=== PATIENT | male | born 1935 | race Caucasian/White ===

== ENCOUNTER 2019-09-30 15:56 | Observation (INO) ==
[2019-09-30 16:49] LABS: Basophils % 0.4 % (0.0-0.8); Eosinophils # 0.2 10*3/uL (0.0-0.87); Eosinophils % 2.4 % (0.00-10.9); Hematocrit 39.2 VOL% (42.0-52.0); Hemoglobin 12.8 GM/DL (14.0-18.0); Immature Granulocytes % 0.5 %; Immature Granulocytes Absolute 0.04 #; Lymphocytes % 12.7 % (21.2-54.2); Mean Corpuscular HGB Conc 32.7 GM/DL (32-36); Mean Corpuscular Volume 85.4 FL (87-102); Mean Platelet Volume 11.3 FL (9.6-12.0); Monocytes % 8.4 % (1.7-12.7); Neutrophils % 75.6 % (38.7-73.9); Platelet Count 123 T/CUMM (130-400); Red Blood Count 4.59 MC/CUMM (3.8-5.5); Red Cell Distribution Width 13.6 % (9.3-17.3)
[2019-09-30 16:57] LABS: Apearance,Urine CLEAR (Clear); Bilirubin,Urine Negative (Negative); Blood, Urine Negative (Negative); Glucose,Urine (UA) Negative (Negative); Ketones,Urine 80 mg/dL (Negative); Mucus,Urine Occasional /LPF (Occasional); Nitrite,Urine Negative (Negative); Protein,Urine 30 MG/DL; RBC,Urine 2 /HPF (0-4); Urine Color Yellow (Yellow); WBC,Urine 1 /HPF (0-6)
[2019-09-30 17:02] LABS: INR 1.1; PT Patient Result 11.8 SECS (9.8-11.9); Partial Thromboplastin Time 26.9 SECS (23.9-33.8)
[2019-09-30 17:02] LABS: Barbiturates Screen,Urine Negative (Negative); Benzodiazepines Screen,Urine Negative (Negative); Cannabinoid Screen,Urine Negative (Negative); Opiate Screen,Urine Negative (Negative); Phencyclidine Screen,Urine Negative (Negative)
[2019-09-30 17:27] LABS: Alanine Aminotransferase 14 U/L (16-61); Albumin 3.4 G/DL (3.4-5.0); Alkaline Phosphatase 43 U/L (45-117); Aspartate Amino Transferase 97 U/L (0-37); Blood Urea Nitrogen 35 MG/DL (7-18); CKMB % 0.6 %; Calcium 8.8 MG/DL (8.5-10.1); Estimated Glom Filtration Rate 73 ML/MIN; Ferritin 185.8 ng/ml (26-388); Free T4 (Free Thyroxine) 0.97 NG/DL (0.76-1.46); Glucose 99 MG/DL (74-106); Osmolality,Calculated 277.1 MOS/KG (273-304); Thyroid Stimulating Hormone 0.184 uIU/ml (0.358-3.74); Total Protein 6.8 G/DL (6.4-8.3); Troponin I < 0.015 NG/ML (0.00-0.045)
[2019-09-30] MEDS ORDERED: SODIUM CHLORIDE 0.9% 1,000 ML IV STA (17:42)
[2019-09-30] MEDS ORDERED: ONDANSETRON 4 MG/2 ML VIAL IV PRN (17:57)
[2019-09-30] MEDS ORDERED: ACETAMINOPHEN 325 MG TABLET PO PRN (17:57)
[2019-09-30] MEDS ORDERED: GLUCAGON 1 MG VIAL IM PRN (17:57)
[2019-09-30] MEDS ORDERED: DEXTROSE 10% 250 ML BAG IV PRN (17:57)
[2019-09-30] MEDS ORDERED: SODIUM CHLORIDE 0.9% 1,000 ML IV SCH (18:00)
[2019-09-30] MEDS: PRAMIPEXOLE 1 MG TABLET PO SCH (22:29)
[2019-09-30] MEDS: MEMANTINE 5 MG TABLET PO SCH (22:29)
[2019-09-30] MEDS: CARBIDOPA/LEVODOPA 25-100 MG TABLET PO SCH (22:29)
[2019-09-30] MEDS: ENOXAPARIN 30 MG/0.3 ML SYRINGE SUBCUT SCH (22:29)
[2019-09-30] MEDS: OXYBUTYNIN XL 5 MG TABLET PO SCH (22:29)
[2019-09-30] MEDS: QUEtiapine 25 MG TABLET PO SCH (22:29)
[2019-10-01 06:13] LABS: Basophils % 0.6 % (0.0-0.8); Eosinophils # 0.3 10*3/uL (0.0-0.87); Eosinophils % 4.4 % (0.00-10.9); Hematocrit 35.6 VOL% (42.0-52.0); Hemoglobin 11.5 GM/DL (14.0-18.0); Immature Granulocytes % 0.5 %; Immature Granulocytes Absolute 0.03 #; Lymphocytes # 1.4 10*3/uL (1.4-4.0); Lymphocytes % 22.1 % (21.2-54.2); Mean Corpuscular HGB Conc 32.3 GM/DL (32-36); Mean Platelet Volume 11.1 FL (9.6-12.0); Monocytes % 10.5 % (1.7-12.7); Neutrophils % 61.9 % (38.7-73.9); Platelet Count 119 T/CUMM (130-400); Red Blood Count 4.09 MC/CUMM (3.8-5.5); Red Cell Distribution Width 13.6 % (9.3-17.3); White Blood Count 6.4 T/CUMM (4-12)
[2019-10-01 06:35] LABS: Calcium 8.3 MG/DL (8.5-10.1); Osmolality,Calculated 277.8 MOS/KG (273-304)
[2019-10-01] MEDS: PRAMIPEXOLE 1 MG TABLET PO SCH ×3 (09:19→21:25)
[2019-10-01] MEDS: CARBIDOPA/LEVODOPA 25-100 MG TABLET PO SCH ×3 (09:20→21:25)
[2019-10-01] MEDS: CLOPIDOGREL 75 MG TABLET PO SCH (09:20)
[2019-10-01] MEDS: lisinopriL 2.5 MG TABLET PO SCH (09:20)
[2019-10-01] MEDS: MEMANTINE 5 MG TABLET PO SCH ×2 (09:26→21:25)
[2019-10-01] MEDS: ASPIRIN EC 81 MG TABLET PO SCH (09:26)
[2019-10-01] MEDS ORDERED: TUBERCULIN SKIN TEST 0.1 ML SYRINGE INTRADERM ONE (15:02)
[2019-10-01] MEDS: OXYBUTYNIN XL 5 MG TABLET PO SCH (21:26)
[2019-10-01] MEDS: ENOXAPARIN 30 MG/0.3 ML SYRINGE SUBCUT SCH (21:27)
[2019-10-01] MEDS: QUEtiapine 25 MG TABLET PO SCH (21:29)
[2019-10-02 04:53] LABS: Basophils % 0.7 % (0.0-0.8); Eosinophils # 0.3 10*3/uL (0.0-0.87); Eosinophils % 4.5 % (0.00-10.9); Hematocrit 35.2 VOL% (42.0-52.0); Hemoglobin 11.3 GM/DL (14.0-18.0); Immature Granulocytes % 0.3 %; Immature Granulocytes Absolute 0.02 #; Lymphocytes # 1.6 10*3/uL (1.4-4.0); Lymphocytes % 27.1 % (21.2-54.2); Mean Corpuscular HGB Conc 32.1 GM/DL (32-36); Mean Corpuscular Volume 86.9 FL (87-102); Mean Platelet Volume 11.1 FL (9.6-12.0); Monocytes % 8.9 % (1.7-12.7); Neutrophils % 58.5 % (38.7-73.9); Platelet Count 127 T/CUMM (130-400); Red Blood Count 4.05 MC/CUMM (3.8-5.5); Red Cell Distribution Width 13.6 % (9.3-17.3); White Blood Count 5.8 T/CUMM (4-12)
[2019-10-02 05:19] LABS: Osmolality,Calculated 278.7 MOS/KG (273-304)
[2019-10-02] MEDS: PRAMIPEXOLE 1 MG TABLET PO SCH ×2 (08:19→14:48)
[2019-10-02] MEDS: ASPIRIN EC 81 MG TABLET PO SCH (08:20)
[2019-10-02] MEDS: CLOPIDOGREL 75 MG TABLET PO SCH (08:20)
[2019-10-02] MEDS: MEMANTINE 5 MG TABLET PO SCH (08:20)
[2019-10-02] MEDS: POTASSIUM CHLORIDE 20 MEQ TABLET PO PRN ×4 (08:20→14:48)
[2019-10-02] MEDS: CARBIDOPA/LEVODOPA 25-100 MG TABLET PO SCH ×3 (08:20→20:22)
[2019-10-02] MEDS: lisinopriL 2.5 MG TABLET PO SCH (08:20)
[2019-10-02] MEDS: DESITIN 4OZ/NYSTATIN 15 GRAM MIXTURE PASTE TOP SCH ×2 (17:35→20:23)
[2019-10-02] MEDS: QUEtiapine 25 MG TABLET PO SCH (20:21)
[2019-10-02] MEDS: ENOXAPARIN 30 MG/0.3 ML SYRINGE SUBCUT SCH (20:22)
[2019-10-02] MEDS: OXYBUTYNIN XL 5 MG TABLET PO SCH (20:22)
[2019-10-02] MEDS: MEMANTINE 10 MG TABLET PO SCH (20:22)
[2019-10-03] MEDS: CARBIDOPA/LEVODOPA 25-100 MG TABLET PO SCH (08:39)
[2019-10-03] MEDS: lisinopriL 2.5 MG TABLET PO SCH (08:39)
[2019-10-03] MEDS: ASPIRIN EC 81 MG TABLET PO SCH (08:40)
[2019-10-03] MEDS: QUEtiapine 25 MG TABLET PO SCH (08:40)
[2019-10-03] MEDS: CLOPIDOGREL 75 MG TABLET PO SCH (08:40)
[2019-10-03] MEDS: MEMANTINE 10 MG TABLET PO SCH (08:40)
[2019-10-03] MEDS: DESITIN 4OZ/NYSTATIN 15 GRAM MIXTURE PASTE TOP SCH (10:42)
[2019-10-03 12:04] VITALS: BP 157/72
== END 2019-10-03 14:06 | disposition swing bed (61) ==
LOC: EDUNIT# → EDBD → N.EDINP 15:56 → N.ED 15:56 → N.3E 19:36
PROVIDERS: ADMIT Internal Medicine; ATTEND Internal Medicine

== ENCOUNTER 2019-10-21 12:52 | Inpatient (IN) ==
[2019-10-21 14:42] LABS: Basophils % 0.2 % (0.0-0.8); Eosinophils % 0.2 % (0.00-10.9); Hematocrit 45.5 VOL% (42.0-52.0); Hemoglobin 14.7 GM/DL (14.0-18.0); Immature Granulocytes % 0.4 %; Immature Granulocytes Absolute 0.05 #; Lymphocytes # 0.6 10*3/uL (1.4-4.0); Lymphocytes % 4.5 % (21.2-54.2); Mean Corpuscular HGB Conc 32.3 GM/DL (32-36); Mean Corpuscular Volume 87.2 FL (87-102); Mean Platelet Volume 9.8 FL (9.6-12.0); Monocytes % 2.5 % (1.7-12.7); Neutrophils % 92.2 % (38.7-73.9); Platelet Count 183 T/CUMM (130-400); Red Blood Count 5.22 MC/CUMM (3.8-5.5); Red Cell Distribution Width 13.5 % (9.3-17.3); White Blood Count 12.9 T/CUMM (4-12)
[2019-10-21 15:00] LABS: Albumin 3.2 G/DL (3.4-5.0); Bilirubin,Total 0.6 MG/DL (0.2-1.0); Calcium 8.8 MG/DL (8.5-10.1); Ferritin 495.1 ng/ml (26-388); Osmolality,Calculated 272.2 MOS/KG (273-304); PT Patient Result 11.1 SECS (9.8-11.9); Total Protein 7.3 G/DL (6.4-8.3)
[2019-10-21] MEDS ORDERED: ONDANSETRON 4 MG/2 ML VIAL IV PRN (16:03)
[2019-10-21] MEDS ORDERED: DEXTROSE 10% 250 ML BAG IV PRN (16:03)
[2019-10-21] MEDS ORDERED: GLUCAGON 1 MG VIAL IM PRN (16:03)
[2019-10-21 16:06] LABS: Band Neutrophils 11 % (0-10); Lymphocytes 2 % (20-55); Segmented Neutrophils 84 % (50-85); Total Cells Counted 100
[2019-10-21 16:07] LABS: Platelet Estimate Normal
[2019-10-21] MEDS ORDERED: ACETAMINOPHEN 325 MG TABLET PO PRN (16:15)
[2019-10-21] MEDS: INSULIN LISPRO 100 UNIT/ML SUBCUT SCH (17:35)
[2019-10-21] MEDS ORDERED: ENOXAPARIN 30 MG/0.3 ML SYRINGE SUBCUT SCH (21:00)
[2019-10-21] MEDS: HYDROXYCHLOROQUINE 200 MG TABLET PO SCH (22:00)
[2019-10-21] MEDS: MEMANTINE 10 MG TABLET PO SCH (22:30)
[2019-10-21] MEDS: CARBIDOPA/LEVODOPA 25-100 MG TABLET PO SCH (22:30)
[2019-10-21] MEDS: OXYBUTYNIN XL 5 MG TABLET PO SCH (22:30)
[2019-10-22 07:15] LABS: Basophils % 0.1 % (0.0-0.8); Hematocrit 39.5 VOL% (42.0-52.0); Hemoglobin 12.9 GM/DL (14.0-18.0); Immature Granulocytes % 0.9 %; Immature Granulocytes Absolute 0.16 #; Lymphocytes # 0.9 10*3/uL (1.4-4.0); Lymphocytes % 5.1 % (21.2-54.2); Mean Corpuscular HGB Conc 32.7 GM/DL (32-36); Mean Corpuscular Volume 85.9 FL (87-102); Mean Platelet Volume 9.8 FL (9.6-12.0); Monocytes % 2.7 % (1.7-12.7); Neutrophils % 91.2 % (38.7-73.9); Platelet Count 177 T/CUMM (130-400); Red Cell Distribution Width 13.5 % (9.3-17.3); White Blood Count 17.8 T/CUMM (4-12)
[2019-10-22 07:38] LABS: Band Neutrophils 10 % (0-10); Hypochromasia Slight; Lymphocytes 5 % (20-55); Ovalocytes Slight; Platelet Estimate Adequate; Segmented Neutrophils 83 % (50-85); Total Cells Counted 100
[2019-10-22 07:39] LABS: Microcytosis Slight
[2019-10-22 08:54] LABS: Calcium 8.8 MG/DL (8.5-10.1)
[2019-10-22] MEDS: ASPIRIN EC 81 MG TABLET PO SCH (09:00)
[2019-10-22] MEDS: CHOLECALCIFEROL 1,000 UNIT TABLET PO SCH (09:00)
[2019-10-22] MEDS: PANTOPRAZOLE 40 MG TABLET PO SCH (09:00)
[2019-10-22] MEDS: CYANOCOBALAMIN 500 MCG TABLET PO SCH (09:00)
[2019-10-22] MEDS: MEMANTINE 10 MG TABLET PO SCH ×2 (09:00→20:30)
[2019-10-22] MEDS: ESCITALOPRAM 10 MG TABLET PO SCH (09:00)
[2019-10-22] MEDS ORDERED: AZITHROMYCIN 250 MG TABLET PO SCH (09:00)
[2019-10-22] MEDS: ZINC SULFATE 220 MG CAPSULE PO SCH (09:00)
[2019-10-22] MEDS: MULTIVITAMIN (CENTRUM) TABLET PO SCH (09:00)
[2019-10-22] MEDS: CLOPIDOGREL 75 MG TABLET PO SCH (09:00)
[2019-10-22] MEDS: HYDROXYCHLOROQUINE 200 MG TABLET PO SCH ×2 (09:00→20:30)
[2019-10-22] MEDS: lisinopriL 2.5 MG TABLET PO SCH (09:00)
[2019-10-22] MEDS: CARBIDOPA/LEVODOPA 25-100 MG TABLET PO SCH ×3 (09:00→20:30)
[2019-10-22] MEDS: INSULIN LISPRO 100 UNIT/ML SUBCUT SCH ×2 (09:46→17:08)
[2019-10-22] MEDS: PIPERACILLIN/TAZOBACTAM 3,375 MG in SODIUM CHLORIDE 0.9% 100 ML IV SCH ×2 (10:32→18:21)
[2019-10-22 17:10] LABS: Apearance,Urine CLOUDY (Clear); Bilirubin,Urine Negative (Negative); Blood, Urine Negative (Negative); Glucose,Urine (UA) Negative (Negative); Ketones,Urine 5 mg/dL (Negative); Mucus,Urine Occasional /LPF (Occasional); Nitrite,Urine Negative (Negative); Protein,Urine 100 MG/DL; RBC,Urine 2 /HPF (0-4); Squamous Epithelial Cell,Urine Occasional /HPF (0-10); Urine Color Amber (Yellow); Urine Specific Gravity 1.029 (1.001-1.035); Urine Urobilinogen < 2.0 EU/DL (0.2-1.0); WBC,Urine 3 /HPF (0-6)
[2019-10-22] MEDS: OXYBUTYNIN XL 5 MG TABLET PO SCH (20:30)
[2019-10-23] MEDS: PIPERACILLIN/TAZOBACTAM 3,375 MG in SODIUM CHLORIDE 0.9% 100 ML IV SCH ×3 (00:49→18:43)
[2019-10-23] MEDS: ENOXAPARIN 40 MG/0.4 ML SYRINGE SUBCUT SCH ×2 (00:50→21:55)
[2019-10-23] MEDS: INSULIN LISPRO 100 UNIT/ML SUBCUT SCH ×2 (08:57→18:29)
[2019-10-23] MEDS: PANTOPRAZOLE 40 MG TABLET PO SCH (09:01)
[2019-10-23] MEDS: CHOLECALCIFEROL 1,000 UNIT TABLET PO SCH (09:01)
[2019-10-23] MEDS: ESCITALOPRAM 10 MG TABLET PO SCH (09:01)
[2019-10-23] MEDS: CLOPIDOGREL 75 MG TABLET PO SCH (09:01)
[2019-10-23] MEDS: CARBIDOPA/LEVODOPA 25-100 MG TABLET PO SCH ×3 (09:01→21:56)
[2019-10-23] MEDS: MULTIVITAMIN (CENTRUM) TABLET PO SCH (09:01)
[2019-10-23] MEDS: lisinopriL 2.5 MG TABLET PO SCH (09:01)
[2019-10-23] MEDS: CYANOCOBALAMIN 500 MCG TABLET PO SCH (09:08)
[2019-10-23] MEDS: ASPIRIN EC 81 MG TABLET PO SCH (09:08)
[2019-10-23] MEDS: HYDROXYCHLOROQUINE 200 MG TABLET PO SCH ×2 (09:08→21:56)
[2019-10-23] MEDS: MEMANTINE 10 MG TABLET PO SCH ×2 (09:08→21:55)
[2019-10-23 10:51] LABS: Basophils % 0.3 % (0.0-0.8); Eosinophils # 0.1 10*3/uL (0.0-0.87); Eosinophils % 0.9 % (0.00-10.9); Hematocrit 38.4 VOL% (42.0-52.0); Hemoglobin 12.5 GM/DL (14.0-18.0); Immature Granulocytes Absolute 0.12 #; Lymphocytes # 0.9 10*3/uL (1.4-4.0); Lymphocytes % 7.4 % (21.2-54.2); Mean Corpuscular HGB Conc 32.6 GM/DL (32-36); Mean Corpuscular Volume 85.1 FL (87-102); Mean Platelet Volume 10.5 FL (9.6-12.0); Monocytes % 4.3 % (1.7-12.7); Neutrophils % 86.1 % (38.7-73.9); Platelet Count 189 T/CUMM (130-400); Red Blood Count 4.51 MC/CUMM (3.8-5.5); Red Cell Distribution Width 13.9 % (9.3-17.3); White Blood Count 12.5 T/CUMM (4-12)
[2019-10-23 10:58] LABS: Calcium 8.9 MG/DL (8.5-10.1); Osmolality,Calculated 284.7 MOS/KG (273-304)
[2019-10-23 11:54] LABS: Anisocytosis Slight; Band Neutrophils 19 % (0-10); Burr Cells 1+; Eosinophils 3 % (0-10); Lymphocytes 7 % (20-55); Platelet Estimate Normal; Poikilocytosis Slight; Segmented Neutrophils 68 % (50-85); Total Cells Counted 100
[2019-10-23] MEDS: OXYBUTYNIN XL 5 MG TABLET PO SCH (21:55)
[2019-10-24 03:41] LABS: Basophils % 0.3 % (0.0-0.8); Eosinophils # 0.1 10*3/uL (0.0-0.87); Eosinophils % 1.2 % (0.00-10.9); Hematocrit 36.7 VOL% (42.0-52.0); Hemoglobin 11.7 GM/DL (14.0-18.0); Immature Granulocytes % 1.2 %; Immature Granulocytes Absolute 0.13 #; Lymphocytes # 1.4 10*3/uL (1.4-4.0); Lymphocytes % 12.7 % (21.2-54.2); Mean Corpuscular HGB Conc 31.9 GM/DL (32-36); Mean Corpuscular Volume 88.6 FL (87-102); Mean Platelet Volume 10.1 FL (9.6-12.0); Monocytes % 5.7 % (1.7-12.7); Neutrophils % 78.9 % (38.7-73.9); Platelet Count 195 T/CUMM (130-400); Red Blood Count 4.14 MC/CUMM (3.8-5.5); Red Cell Distribution Width 13.8 % (9.3-17.3); White Blood Count 10.6 T/CUMM (4-12)
[2019-10-24 03:49] LABS: Calcium 8.9 MG/DL (8.5-10.1); Osmolality,Calculated 282.8 MOS/KG (273-304)
[2019-10-24] MEDS: PIPERACILLIN/TAZOBACTAM 3,375 MG in SODIUM CHLORIDE 0.9% 100 ML IV SCH ×2 (04:42→09:59)
[2019-10-24] MEDS: INSULIN LISPRO 100 UNIT/ML SUBCUT SCH ×2 (09:57→17:47)
[2019-10-24] MEDS: CLOPIDOGREL 75 MG TABLET PO SCH (09:58)
[2019-10-24] MEDS: ASPIRIN EC 81 MG TABLET PO SCH (09:58)
[2019-10-24] MEDS: MULTIVITAMIN (CENTRUM) TABLET PO SCH (09:58)
[2019-10-24] MEDS: CYANOCOBALAMIN 500 MCG TABLET PO SCH (09:58)
[2019-10-24] MEDS: CHOLECALCIFEROL 1,000 UNIT TABLET PO SCH (09:58)
[2019-10-24] MEDS: HYDROXYCHLOROQUINE 200 MG TABLET PO SCH ×2 (09:58→21:52)
[2019-10-24] MEDS: CARBIDOPA/LEVODOPA 25-100 MG TABLET PO SCH ×3 (09:58→21:52)
[2019-10-24] MEDS: lisinopriL 2.5 MG TABLET PO SCH (09:58)
[2019-10-24] MEDS: ESCITALOPRAM 10 MG TABLET PO SCH (09:58)
[2019-10-24] MEDS: ZINC SULFATE 220 MG CAPSULE PO SCH (09:58)
[2019-10-24] MEDS: PANTOPRAZOLE 40 MG TABLET PO SCH (09:58)
[2019-10-24] MEDS: MEMANTINE 10 MG TABLET PO SCH ×2 (09:58→21:52)
[2019-10-24] MEDS: OXYBUTYNIN XL 5 MG TABLET PO SCH (21:52)
[2019-10-24] MEDS: ENOXAPARIN 40 MG/0.4 ML SYRINGE SUBCUT SCH (21:52)
[2019-10-25 03:19] LABS: Basophils % 0.5 % (0.0-0.8); Eosinophils # 0.2 10*3/uL (0.0-0.87); Hematocrit 34.7 VOL% (42.0-52.0); Hemoglobin 11.2 GM/DL (14.0-18.0); Immature Granulocytes % 2.2 %; Immature Granulocytes Absolute 0.18 #; Lymphocytes # 1.1 10*3/uL (1.4-4.0); Lymphocytes % 13.1 % (21.2-54.2); Mean Corpuscular HGB Conc 32.3 GM/DL (32-36); Mean Corpuscular Volume 86.3 FL (87-102); Mean Platelet Volume 10.3 FL (9.6-12.0); Monocytes % 7.2 % (1.7-12.7); Platelet Count 198 T/CUMM (130-400); Red Blood Count 4.02 MC/CUMM (3.8-5.5); Red Cell Distribution Width 13.7 % (9.3-17.3); White Blood Count 8.2 T/CUMM (4-12)
[2019-10-25 03:36] LABS: Calcium 8.7 MG/DL (8.5-10.1); Osmolality,Calculated 283.5 MOS/KG (273-304)
[2019-10-25] MEDS: CHOLECALCIFEROL 1,000 UNIT TABLET PO SCH (08:20)
[2019-10-25] MEDS: ESCITALOPRAM 10 MG TABLET PO SCH (08:20)
[2019-10-25] MEDS: CYANOCOBALAMIN 500 MCG TABLET PO SCH (08:20)
[2019-10-25] MEDS: HYDROXYCHLOROQUINE 200 MG TABLET PO SCH ×2 (08:20→20:30)
[2019-10-25] MEDS: ASPIRIN EC 81 MG TABLET PO SCH (08:20)
[2019-10-25] MEDS: PANTOPRAZOLE 40 MG TABLET PO SCH (08:20)
[2019-10-25] MEDS: MEMANTINE 10 MG TABLET PO SCH ×2 (08:20→20:30)
[2019-10-25] MEDS: MULTIVITAMIN (CENTRUM) TABLET PO SCH (08:20)
[2019-10-25] MEDS: CARBIDOPA/LEVODOPA 25-100 MG TABLET PO SCH ×3 (08:20→20:30)
[2019-10-25] MEDS: CLOPIDOGREL 75 MG TABLET PO SCH (08:20)
[2019-10-25] MEDS: lisinopriL 2.5 MG TABLET PO SCH (08:20)
[2019-10-25] MEDS: INSULIN LISPRO 100 UNIT/ML SUBCUT SCH ×2 (10:23→18:51)
[2019-10-25] MEDS: OXYBUTYNIN XL 5 MG TABLET PO SCH (20:30)
[2019-10-25] MEDS: ENOXAPARIN 40 MG/0.4 ML SYRINGE SUBCUT SCH (20:30)
[2019-10-26] MEDS: INSULIN LISPRO 100 UNIT/ML SUBCUT SCH ×2 (07:50→17:54)
[2019-10-26] MEDS: MEMANTINE 10 MG TABLET PO SCH ×2 (12:44→20:30)
[2019-10-26] MEDS: ESCITALOPRAM 10 MG TABLET PO SCH (12:44)
[2019-10-26] MEDS: ASPIRIN EC 81 MG TABLET PO SCH (12:44)
[2019-10-26] MEDS: MULTIVITAMIN (CENTRUM) TABLET PO SCH (12:44)
[2019-10-26] MEDS: PANTOPRAZOLE 40 MG TABLET PO SCH (12:45)
[2019-10-26] MEDS: CYANOCOBALAMIN 500 MCG TABLET PO SCH (12:45)
[2019-10-26] MEDS: CHOLECALCIFEROL 1,000 UNIT TABLET PO SCH (12:45)
[2019-10-26] MEDS: CARBIDOPA/LEVODOPA 25-100 MG TABLET PO SCH ×3 (12:45→20:30)
[2019-10-26] MEDS: lisinopriL 2.5 MG TABLET PO SCH (12:45)
[2019-10-26] MEDS: CLOPIDOGREL 75 MG TABLET PO SCH (12:45)
[2019-10-26] MEDS: HYDROXYCHLOROQUINE 200 MG TABLET PO SCH (12:45)
[2019-10-26] MEDS: ZINC SULFATE 220 MG CAPSULE PO SCH (12:46)
[2019-10-26] MEDS: ENOXAPARIN 40 MG/0.4 ML SYRINGE SUBCUT SCH (20:30)
[2019-10-26] MEDS: OXYBUTYNIN XL 5 MG TABLET PO SCH (20:30)
[2019-10-27] MEDS: PANTOPRAZOLE 40 MG TABLET PO SCH (08:47)
[2019-10-27] MEDS: CLOPIDOGREL 75 MG TABLET PO SCH (08:47)
[2019-10-27] MEDS: lisinopriL 2.5 MG TABLET PO SCH (08:47)
[2019-10-27] MEDS: CYANOCOBALAMIN 500 MCG TABLET PO SCH (08:47)
[2019-10-27] MEDS: ASPIRIN EC 81 MG TABLET PO SCH (08:47)
[2019-10-27] MEDS: CARBIDOPA/LEVODOPA 25-100 MG TABLET PO SCH (08:47)
[2019-10-27] MEDS: ESCITALOPRAM 10 MG TABLET PO SCH (08:47)
[2019-10-27] MEDS: INSULIN LISPRO 100 UNIT/ML SUBCUT SCH (08:47)
[2019-10-27] MEDS: CHOLECALCIFEROL 1,000 UNIT TABLET PO SCH (08:47)
[2019-10-27] MEDS: MULTIVITAMIN (CENTRUM) TABLET PO SCH (08:47)
[2019-10-27] MEDS: MEMANTINE 10 MG TABLET PO SCH (08:47)
[2019-10-27 13:04] VITALS: BP 137/73
== END 2019-10-27 14:21 | DRG 179 ==
LOC: EDUNIT# → EDBD → N.ED 12:52 → N.EDINP 16:44 → SUATTDRO 16:44 → N.2W 17:05
PROVIDERS: ADMIT Internal Medicine; ATTEND Internal Medicine

== ENCOUNTER 2021-07-26 10:21 | Inpatient (IN) ==
[2021-07-26 11:27] LABS: Basophils # 0.1 10*3/uL (0.0-0.2); Basophils % 0.7 % (0.0-0.8); Eosinophils # 0.2 10*3/uL (0.0-0.87); Eosinophils % 2.5 % (0.00-10.9); Hematocrit 42.4 VOL% (42.0-52.0); Hemoglobin 13.9 GM/DL (14.0-18.0); Immature Granulocytes % 0.6 %; Immature Granulocytes Absolute 0.04 #; Lymphocytes # 2.5 10*3/uL (1.4-4.0); Mean Corpuscular HGB Conc 32.8 GM/DL (32-36); Mean Corpuscular Volume 86.7 FL (87-102); Mean Platelet Volume 11.1 FL (9.6-12.0); Monocytes % 6.7 % (1.7-12.7); Neutrophils % 53.5 % (38.7-73.9); Platelet Count 131 T/CUMM (130-400); Red Blood Count 4.89 MC/CUMM (3.8-5.5); Red Cell Distribution Width 13.6 % (9.3-17.3); White Blood Count 6.9 T/CUMM (4-12)
[2021-07-26 11:41] LABS: Alanine Aminotransferase < 9 U/L (16-61); Albumin 3.8 G/DL (3.4-5.0); Alkaline Phosphatase 55 U/L (45-117); Aspartate Amino Transferase 13 U/L (0-37); Blood Urea Nitrogen 19 MG/DL (7-18); Calcium 9.4 MG/DL (8.5-10.1); Carbon Dioxide 30 MMOL/L (21-32); Estimated Glom Filtration Rate 68 ML/MIN; Glucose 129 MG/DL (74-106); Osmolality,Calculated 282.4 MOS/KG (273-304); Potassium 3.6 MMOL/L (3.5-5.1); Sodium 140 MMOL/L (136-145); Total Protein 6.6 G/DL (6.4-8.2)
[2021-07-26] MEDS ORDERED: ONDANSETRON 4 MG/2 ML VIAL ONE (12:15)
[2021-07-26] MEDS ORDERED: ONDANSETRON 4 MG/2 ML VIAL IV STA (12:18)
[2021-07-26] MEDS ORDERED: BISACODYL 5 MG TABLET PO PRN (12:51)
[2021-07-26] MEDS ORDERED: ONDANSETRON 4 MG/2 ML VIAL IV PRN (12:51)
[2021-07-26] MEDS ORDERED: GLUCAGON 1 MG VIAL IM PRN (12:51)
[2021-07-26] MEDS: LACTATED RINGERS 1,000 ML IV SCH (12:55)
[2021-07-26] MEDS ORDERED: DEXTROSE 10% 25 GM/250 ML BAG IV PRN (12:57)
[2021-07-26 16:15] LABS: Bilirubin,Urine Negative (Negative); Blood, Urine Large mg/dL (Negative); Glucose,Urine (UA) Negative (Negative); Ketones,Urine 20 mg/dL (Negative); Mucus,Urine Moderate /LPF (Occasional); Nitrite,Urine Negative (Negative); Protein,Urine 30 MG/DL; RBC,Urine 1136 /HPF (0-4); Urine Appearance Slightly Hazy (Clear); Urine Color Yellow (Yellow); Urine Specific Gravity 1.019 (1.001-1.035)
[2021-07-26] MEDS: ENOXAPARIN 40 MG/0.4 ML SYRINGE SUBCUT SCH (16:17)
[2021-07-26] MEDS: CARBIDOPA/LEVODOPA 25-100 MG TABLET PO SCH ×2 (21:39→22:00)
[2021-07-26] MEDS: INSULIN LISPRO 100 UNIT/ML SUBCUT SCH (21:40)
[2021-07-26] MEDS: LATANOPROST 0.005% OPH SOLN 2.5 ML BOTTLE BOTH EYES SCH (22:00)
[2021-07-26] MEDS: OXYBUTYNIN XL 5 MG TABLET PO SCH (22:00)
[2021-07-26] MEDS: ROSUVASTATIN 10 MG TABLET PO SCH (22:00)
[2021-07-26] MEDS: MEMANTINE 10 MG TABLET PO SCH (22:00)
[2021-07-27] MEDS: LACTATED RINGERS 1,000 ML IV SCH ×3 (02:08→20:35)
[2021-07-27] MEDS: INSULIN LISPRO 100 UNIT/ML SUBCUT SCH ×5 (02:08→20:37)
[2021-07-27 06:45] LABS: Basophils % 0.3 % (0.0-0.8); Eosinophils # 0.1 10*3/uL (0.0-0.87); Hematocrit 42.4 VOL% (42.0-52.0); Hemoglobin 13.7 GM/DL (14.0-18.0); Immature Granulocytes % 0.3 %; Immature Granulocytes Absolute 0.03 #; Lymphocytes # 2.2 10*3/uL (1.4-4.0); Lymphocytes % 20.2 % (21.2-54.2); Mean Corpuscular HGB Conc 32.3 GM/DL (32-36); Mean Corpuscular Volume 87.4 FL (87-102); Mean Platelet Volume 12.7 FL (9.6-12.0); Monocytes % 6.8 % (1.7-12.7); Neutrophils % 71.4 % (38.7-73.9); Platelet Count 108 T/CUMM (130-400); Red Blood Count 4.85 MC/CUMM (3.8-5.5); Red Cell Distribution Width 13.5 % (9.3-17.3); White Blood Count 10.9 T/CUMM (4-12)
[2021-07-27 06:59] LABS: Calcium 8.5 MG/DL (8.5-10.1); Osmolality,Calculated 281.4 MOS/KG (273-304); Potassium 3.7 MMOL/L (3.5-5.1)
[2021-07-27] MEDS: cefTRIAXone 1,000 MG in SODIUM CHLORIDE 0.9% 100 ML IV SCH (08:47)
[2021-07-27] MEDS: ESCITALOPRAM 10 MG TABLET PO SCH (10:24)
[2021-07-27] MEDS: ASPIRIN EC 81 MG TABLET PO SCH (10:24)
[2021-07-27] MEDS: CLOPIDOGREL 75 MG TABLET PO SCH (10:26)
[2021-07-27] MEDS: CYANOCOBALAMIN 500 MCG TABLET PO SCH (10:26)
[2021-07-27] MEDS: MEMANTINE 10 MG TABLET PO SCH ×2 (10:26→20:38)
[2021-07-27] MEDS: CHOLECALCIFEROL 1,000 UNIT TABLET PO SCH (10:26)
[2021-07-27] MEDS: lisinopriL 2.5 MG TABLET PO SCH (10:27)
[2021-07-27] MEDS: PANTOPRAZOLE 40 MG TABLET PO SCH (10:27)
[2021-07-27] MEDS: CARBIDOPA/LEVODOPA 25-100 MG TABLET PO SCH ×3 (10:27→20:38)
[2021-07-27] MEDS: ENOXAPARIN 40 MG/0.4 ML SYRINGE SUBCUT SCH (15:40)
[2021-07-27] MEDS: LATANOPROST 0.005% OPH SOLN 2.5 ML BOTTLE BOTH EYES SCH (20:36)
[2021-07-27] MEDS: ROSUVASTATIN 10 MG TABLET PO SCH (20:37)
[2021-07-27] MEDS: OXYBUTYNIN XL 5 MG TABLET PO SCH (20:37)
[2021-07-28] MEDS: cefTRIAXone 1,000 MG in SODIUM CHLORIDE 0.9% 100 ML IV SCH (06:17)
[2021-07-28] MEDS: LACTATED RINGERS 1,000 ML IV SCH ×2 (07:00→14:31)
[2021-07-28 07:48] LABS: Basophils # 0.1 10*3/uL (0.0-0.2); Basophils % 0.6 % (0.0-0.8); Eosinophils # 0.1 10*3/uL (0.0-0.87); Eosinophils % 1.8 % (0.00-10.9); Hematocrit 35.9 VOL% (42.0-52.0); Hemoglobin 11.8 GM/DL (14.0-18.0); Immature Granulocytes % 0.1 %; Immature Granulocytes Absolute 0.01 #; Lymphocytes % 25.5 % (21.2-54.2); Mean Corpuscular HGB Conc 32.9 GM/DL (32-36); Mean Corpuscular Volume 87.3 FL (87-102); Mean Platelet Volume 11.3 FL (9.6-12.0); Monocytes % 8.1 % (1.7-12.7); Neutrophils % 63.9 % (38.7-73.9); Platelet Count 106 T/CUMM (130-400); Red Blood Count 4.11 MC/CUMM (3.8-5.5); Red Cell Distribution Width 13.2 % (9.3-17.3); White Blood Count 7.7 T/CUMM (4-12)
[2021-07-28 08:01] LABS: Calcium 8.4 MG/DL (8.5-10.1); Osmolality,Calculated 273.7 MOS/KG (273-304); Potassium 3.7 MMOL/L (3.5-5.1)
[2021-07-28 08:06] LABS: Burr Cells Few; Platelet Estimate Adequate
[2021-07-28] MEDS: ASPIRIN EC 81 MG TABLET PO SCH (08:49)
[2021-07-28] MEDS: INSULIN LISPRO 100 UNIT/ML SUBCUT SCH ×4 (08:49→21:28)
[2021-07-28] MEDS: ESCITALOPRAM 10 MG TABLET PO SCH (08:50)
[2021-07-28] MEDS: lisinopriL 2.5 MG TABLET PO SCH (08:51)
[2021-07-28] MEDS: CLOPIDOGREL 75 MG TABLET PO SCH (08:51)
[2021-07-28] MEDS: MEMANTINE 10 MG TABLET PO SCH ×2 (08:51→21:30)
[2021-07-28] MEDS: CYANOCOBALAMIN 500 MCG TABLET PO SCH (08:51)
[2021-07-28] MEDS: CARBIDOPA/LEVODOPA 25-100 MG TABLET PO SCH ×3 (08:51→21:30)
[2021-07-28] MEDS: PANTOPRAZOLE 40 MG TABLET PO SCH (08:51)
[2021-07-28] MEDS: CHOLECALCIFEROL 1,000 UNIT TABLET PO SCH (08:52)
[2021-07-28] MEDS: ENOXAPARIN 40 MG/0.4 ML SYRINGE SUBCUT SCH (14:30)
[2021-07-28] MEDS ORDERED: ATORVASTATIN 40 MG TABLET PO SCH (21:00)
[2021-07-28] MEDS: LATANOPROST 0.005% OPH SOLN 2.5 ML BOTTLE BOTH EYES SCH (21:27)
[2021-07-28] MEDS: OXYBUTYNIN XL 5 MG TABLET PO SCH (21:29)
[2021-07-28] MEDS: ATORVASTATIN 80 MG TABLET PO SCH (21:30)
[2021-07-29] MEDS: LACTATED RINGERS 1,000 ML IV SCH ×2 (00:18→17:53)
[2021-07-29] MEDS: cefTRIAXone 1,000 MG in SODIUM CHLORIDE 0.9% 100 ML IV SCH (06:08)
[2021-07-29 06:41] LABS: Risk Ratio 2.4; VLDL Cholesterol 19.8 MG/DL
[2021-07-29] MEDS: INSULIN LISPRO 100 UNIT/ML SUBCUT SCH ×4 (08:47→20:12)
[2021-07-29] MEDS: ASPIRIN EC 81 MG TABLET PO SCH (11:54)
[2021-07-29] MEDS: CYANOCOBALAMIN 500 MCG TABLET PO SCH (11:55)
[2021-07-29] MEDS: MEMANTINE 10 MG TABLET PO SCH ×2 (11:55→20:11)
[2021-07-29] MEDS: CARBIDOPA/LEVODOPA 25-100 MG TABLET PO SCH ×3 (11:55→20:11)
[2021-07-29] MEDS: PANTOPRAZOLE 40 MG TABLET PO SCH (11:55)
[2021-07-29] MEDS: ESCITALOPRAM 10 MG TABLET PO SCH (11:55)
[2021-07-29] MEDS: CLOPIDOGREL 75 MG TABLET PO SCH (11:55)
[2021-07-29] MEDS: CHOLECALCIFEROL 1,000 UNIT TABLET PO SCH (11:56)
[2021-07-29] MEDS ORDERED: hydrALAZINE 20 MG/1 ML VIAL IV PRN (12:09)
[2021-07-29] MEDS: ENOXAPARIN 40 MG/0.4 ML SYRINGE SUBCUT SCH (16:47)
[2021-07-29] MEDS: ATORVASTATIN 80 MG TABLET PO SCH (20:11)
[2021-07-29] MEDS: LATANOPROST 0.005% OPH SOLN 2.5 ML BOTTLE BOTH EYES SCH (20:11)
[2021-07-29] MEDS: OXYBUTYNIN XL 5 MG TABLET PO SCH (20:11)
[2021-07-30] MEDS: LACTATED RINGERS 1,000 ML IV SCH ×2 (03:15→14:40)
[2021-07-30 05:47] LABS: Basophils % 0.5 % (0.0-0.8); Eosinophils # 0.1 10*3/uL (0.0-0.87); Eosinophils % 1.6 % (0.00-10.9); Hematocrit 32.3 VOL% (42.0-52.0); Hemoglobin 10.7 GM/DL (14.0-18.0); Immature Granulocytes % 0.5 %; Immature Granulocytes Absolute 0.03 #; Lymphocytes # 1.3 10*3/uL (1.4-4.0); Lymphocytes % 20.4 % (21.2-54.2); Mean Corpuscular HGB Conc 33.1 GM/DL (32-36); Mean Corpuscular Volume 85.7 FL (87-102); Mean Platelet Volume 11.3 FL (9.6-12.0); Platelet Count 101 T/CUMM (130-400); Red Blood Count 3.77 MC/CUMM (3.8-5.5); White Blood Count 6.2 T/CUMM (4-12)
[2021-07-30 06:16] LABS: Calcium 8.5 MG/DL (8.5-10.1); Osmolality,Calculated 267.1 MOS/KG (273-304); Potassium 4.2 MMOL/L (3.5-5.1)
[2021-07-30] MEDS: cefTRIAXone 1,000 MG in SODIUM CHLORIDE 0.9% 100 ML IV SCH (06:35)
[2021-07-30] MEDS ORDERED: DEXTROSE 50% 25 GM/50 ML VIAL IV PRN (07:32)
[2021-07-30] MEDS: PANTOPRAZOLE 40 MG VIAL IV SCH ×2 (09:05→21:17)
[2021-07-30] MEDS: INSULIN LISPRO 100 UNIT/ML SUBCUT SCH ×4 (09:26→21:19)
[2021-07-30] MEDS: ESCITALOPRAM 10 MG TABLET PO SCH (10:36)
[2021-07-30] MEDS: CHOLECALCIFEROL 1,000 UNIT TABLET PO SCH (10:37)
[2021-07-30] MEDS: CARBIDOPA/LEVODOPA 25-100 MG TABLET PO SCH ×3 (10:37→21:15)
[2021-07-30] MEDS: CYANOCOBALAMIN 500 MCG TABLET PO SCH (10:37)
[2021-07-30] MEDS: lisinopriL 2.5 MG TABLET PO SCH (10:37)
[2021-07-30] MEDS: ASPIRIN EC 81 MG TABLET PO SCH (10:37)
[2021-07-30] MEDS: MEMANTINE 10 MG TABLET PO SCH ×2 (10:37→21:15)
[2021-07-30] MEDS: ENOXAPARIN 40 MG/0.4 ML SYRINGE SUBCUT SCH (15:18)
[2021-07-30] MEDS: AMPICILLIN INJ 1,000 MG in SODIUM CHLORIDE 0.9% 100 ML IV SCH ×2 (15:55→21:17)
[2021-07-30] MEDS: OXYBUTYNIN XL 5 MG TABLET PO SCH (21:15)
[2021-07-30] MEDS: ATORVASTATIN 80 MG TABLET PO SCH (21:15)
[2021-07-30] MEDS: LATANOPROST 0.005% OPH SOLN 2.5 ML BOTTLE BOTH EYES SCH (21:19)
[2021-07-31] MEDS: AMPICILLIN INJ 1,000 MG in SODIUM CHLORIDE 0.9% 100 ML IV SCH ×4 (03:55→21:45)
[2021-07-31] MEDS: INSULIN LISPRO 100 UNIT/ML SUBCUT SCH ×4 (07:15→21:19)
[2021-07-31 09:00] LABS: Calcium 8.5 MG/DL (8.5-10.1); Osmolality,Calculated 269.2 MOS/KG (273-304); Potassium 3.4 MMOL/L (3.5-5.1)
[2021-07-31] MEDS: MEMANTINE 10 MG TABLET PO SCH ×2 (09:57→21:08)
[2021-07-31] MEDS: ESCITALOPRAM 10 MG TABLET PO SCH (09:57)
[2021-07-31] MEDS: ASPIRIN EC 81 MG TABLET PO SCH (09:57)
[2021-07-31] MEDS: CHOLECALCIFEROL 1,000 UNIT TABLET PO SCH (09:57)
[2021-07-31] MEDS: lisinopriL 2.5 MG TABLET PO SCH (09:57)
[2021-07-31] MEDS: CARBIDOPA/LEVODOPA 25-100 MG TABLET PO SCH ×3 (09:57→21:08)
[2021-07-31] MEDS: CYANOCOBALAMIN 500 MCG TABLET PO SCH (09:58)
[2021-07-31] MEDS: PANTOPRAZOLE 40 MG VIAL IV SCH ×2 (10:29→21:18)
[2021-07-31] MEDS: POTASSIUM BICARB EFFERVESCENT 20 MEQ TAB.EFF NG SCH ×2 (11:02→21:07)
[2021-07-31] MEDS: LACTATED RINGERS 1,000 ML IV SCH (16:53)
[2021-07-31] MEDS: OXYBUTYNIN XL 5 MG TABLET PO SCH (21:07)
[2021-07-31] MEDS: ATORVASTATIN 80 MG TABLET PO SCH (21:08)
[2021-07-31] MEDS: LATANOPROST 0.005% OPH SOLN 2.5 ML BOTTLE BOTH EYES SCH (21:22)
[2021-08-01] MEDS: AMPICILLIN INJ 1,000 MG in SODIUM CHLORIDE 0.9% 100 ML IV SCH ×3 (03:43→18:21)
[2021-08-01 04:42] LABS: Basophils % 0.4 % (0.0-0.8); Eosinophils # 0.1 10*3/uL (0.0-0.87); Eosinophils % 0.5 % (0.00-10.9); Hematocrit 40.6 VOL% (42.0-52.0); Immature Granulocytes % 0.3 %; Immature Granulocytes Absolute 0.03 #; Lymphocytes # 1.4 10*3/uL (1.4-4.0); Lymphocytes % 14.9 % (21.2-54.2); Mean Corpuscular HGB Conc 33.5 GM/DL (32-36); Mean Corpuscular Volume 83.7 FL (87-102); Mean Platelet Volume 10.7 FL (9.6-12.0); Monocytes % 10.3 % (1.7-12.7); Neutrophils % 73.6 % (38.7-73.9); Red Cell Distribution Width 13.2 % (9.3-17.3)
[2021-08-01 04:45] LABS: Hemoglobin 13.6 GM/DL (14.0-18.0); Platelet Count 130 T/CUMM (130-400); Red Blood Count 4.85 MC/CUMM (3.8-5.5); White Blood Count 9.2 T/CUMM (4-12)
[2021-08-01 05:06] LABS: Calcium 8.4 MG/DL (8.5-10.1); Osmolality,Calculated 270.1 MOS/KG (273-304); Potassium 3.6 MMOL/L (3.5-5.1)
[2021-08-01] MEDS ORDERED: LIDOCAINE 2% 5 ML VIAL ONE (07:58)
[2021-08-01] MEDS ORDERED: propofoL 200 MG/20 ML VIAL IV ONE (07:58)
[2021-08-01] MEDS ORDERED: metroNIDAZOLE INJ 500 MG/100 ML PREMIX IV ONE (08:31)
[2021-08-01] MEDS: INSULIN LISPRO 100 UNIT/ML SUBCUT SCH ×4 (08:55→22:45)
[2021-08-01] MEDS: PANTOPRAZOLE 40 MG VIAL IV SCH ×2 (10:49→21:50)
[2021-08-01] MEDS: MEMANTINE 10 MG TABLET PO SCH ×2 (10:50→21:50)
[2021-08-01] MEDS: lisinopriL 2.5 MG TABLET PO SCH (10:50)
[2021-08-01] MEDS: POTASSIUM BICARB EFFERVESCENT 20 MEQ TAB.EFF NG SCH (10:50)
[2021-08-01] MEDS: ESCITALOPRAM 10 MG TABLET PO SCH (10:50)
[2021-08-01] MEDS: CARBIDOPA/LEVODOPA 25-100 MG TABLET PO SCH ×3 (10:51→21:50)
[2021-08-01] MEDS: ASPIRIN EC 81 MG TABLET PO SCH (10:51)
[2021-08-01] MEDS: CYANOCOBALAMIN 500 MCG TABLET PO SCH (10:51)
[2021-08-01] MEDS: CHOLECALCIFEROL 1,000 UNIT TABLET PO SCH (10:51)
[2021-08-01] MEDS: LACTATED RINGERS 1,000 ML IV SCH (14:29)
[2021-08-01] MEDS: OXYBUTYNIN XL 5 MG TABLET PO SCH (21:50)
[2021-08-01] MEDS: LATANOPROST 0.005% OPH SOLN 2.5 ML BOTTLE BOTH EYES SCH (21:50)
[2021-08-01] MEDS: ATORVASTATIN 80 MG TABLET PO SCH (21:50)
[2021-08-02] MEDS: AMPICILLIN INJ 1,000 MG in SODIUM CHLORIDE 0.9% 100 ML IV SCH ×5 (00:49→23:22)
[2021-08-02] MEDS: INSULIN LISPRO 100 UNIT/ML SUBCUT SCH ×4 (08:41→21:12)
[2021-08-02] MEDS: MEMANTINE 10 MG TABLET PO SCH ×2 (10:36→21:12)
[2021-08-02] MEDS: lisinopriL 2.5 MG TABLET PO SCH (10:36)
[2021-08-02] MEDS: CARBIDOPA/LEVODOPA 25-100 MG TABLET PO SCH ×3 (10:36→21:12)
[2021-08-02] MEDS: ASPIRIN EC 81 MG TABLET PO SCH (10:36)
[2021-08-02] MEDS: PANTOPRAZOLE 40 MG VIAL IV SCH ×2 (10:36→21:13)
[2021-08-02] MEDS: CYANOCOBALAMIN 500 MCG TABLET PO SCH (10:36)
[2021-08-02] MEDS: ESCITALOPRAM 10 MG TABLET PO SCH (10:36)
[2021-08-02] MEDS: CHOLECALCIFEROL 1,000 UNIT TABLET PO SCH (10:37)
[2021-08-02] MEDS: LACTATED RINGERS 1,000 ML IV SCH (12:13)
[2021-08-02] MEDS: ATORVASTATIN 80 MG TABLET PO SCH (21:12)
[2021-08-02] MEDS: OXYBUTYNIN XL 5 MG TABLET PO SCH (21:12)
[2021-08-02] MEDS: LATANOPROST 0.005% OPH SOLN 2.5 ML BOTTLE BOTH EYES SCH (21:13)
[2021-08-02] MEDS: ACETAMINOPHEN 325 MG TABLET PO PRN (23:23)
[2021-08-03] MEDS: AMPICILLIN INJ 1,000 MG in SODIUM CHLORIDE 0.9% 100 ML IV SCH ×3 (05:57→17:32)
[2021-08-03 09:05] LABS: Basophils % 0.3 % (0.0-0.8); Eosinophils % 0.3 % (0.00-10.9); Hematocrit 38.9 VOL% (42.0-52.0); Hemoglobin 13.2 GM/DL (14.0-18.0); Immature Granulocytes % 0.7 %; Immature Granulocytes Absolute 0.09 #; Lymphocytes # 1.3 10*3/uL (1.4-4.0); Mean Corpuscular HGB Conc 33.9 GM/DL (32-36); Mean Corpuscular Volume 82.9 FL (87-102); Mean Platelet Volume 11.4 FL (9.6-12.0); Monocytes % 6.4 % (1.7-12.7); Neutrophils % 82.3 % (38.7-73.9); Platelet Count 156 T/CUMM (130-400); Red Blood Count 4.69 MC/CUMM (3.8-5.5); Red Cell Distribution Width 13.3 % (9.3-17.3); White Blood Count 13.2 T/CUMM (4-12)
[2021-08-03 09:19] LABS: Calcium 8.7 MG/DL (8.5-10.1); Osmolality,Calculated 264.9 MOS/KG (273-304); Potassium 3.6 MMOL/L (3.5-5.1)
[2021-08-03 09:26] LABS: Band Neutrophils 3 % (0-10); Eosinophils 1 % (0-10); Lymphocytes 11 % (20-55); Platelet Estimate Adequate; Segmented Neutrophils 83 % (50-85); Total Cells Counted 100
[2021-08-03 09:27] LABS: Hypochromia Slight; Microcytosis Slight
[2021-08-03] MEDS: lisinopriL 2.5 MG TABLET PO SCH (10:28)
[2021-08-03] MEDS: CYANOCOBALAMIN 500 MCG TABLET PO SCH (10:28)
[2021-08-03] MEDS: CARBIDOPA/LEVODOPA 25-100 MG TABLET PO SCH ×3 (10:28→21:09)
[2021-08-03] MEDS: ASPIRIN EC 81 MG TABLET PO SCH (10:28)
[2021-08-03] MEDS: CHOLECALCIFEROL 1,000 UNIT TABLET PO SCH (10:28)
[2021-08-03] MEDS: MEMANTINE 10 MG TABLET PO SCH ×2 (10:28→21:09)
[2021-08-03] MEDS: INSULIN LISPRO 100 UNIT/ML SUBCUT SCH ×4 (10:29→21:09)
[2021-08-03] MEDS: ESCITALOPRAM 10 MG TABLET PO SCH (10:31)
[2021-08-03] MEDS: PANTOPRAZOLE 40 MG VIAL IV SCH ×2 (11:59→21:10)
[2021-08-03] MEDS: ACETAMINOPHEN 325 MG TABLET PO PRN (11:59)
[2021-08-03] MEDS: LACTATED RINGERS 1,000 ML IV SCH (12:12)
[2021-08-03] MEDS: ENOXAPARIN 40 MG/0.4 ML SYRINGE SUBCUT SCH (13:13)
[2021-08-03] MEDS: OXYBUTYNIN XL 5 MG TABLET PO SCH (21:09)
[2021-08-03] MEDS: ATORVASTATIN 80 MG TABLET PO SCH (21:09)
[2021-08-03] MEDS: LATANOPROST 0.005% OPH SOLN 2.5 ML BOTTLE BOTH EYES SCH (21:10)
[2021-08-04] MEDS: AMPICILLIN INJ 1,000 MG in SODIUM CHLORIDE 0.9% 100 ML IV SCH ×4 (00:52→19:20)
[2021-08-04] MEDS: LACTATED RINGERS 1,000 ML IV SCH ×2 (00:53→20:44)
[2021-08-04 05:41] LABS: Calcium 8.2 MG/DL (8.5-10.1); Osmolality,Calculated 268.7 MOS/KG (273-304); Potassium 3.3 MMOL/L (3.5-5.1)
[2021-08-04] MEDS ORDERED: MAGNESIUM SULF RIDER 2 GM/50 ML PREMIX IV PRN (07:41)
[2021-08-04] MEDS ORDERED: MAGNESIUM SULF RIDER 4 GM/100 ML PREMIX IV PRN (07:41)
[2021-08-04] MEDS ORDERED: POTASSIUM PHOSPHATE 30 MMOL in SODIUM CHLORIDE 0.9% 250 ML IV ONE (07:56)
[2021-08-04] MEDS: INSULIN LISPRO 100 UNIT/ML SUBCUT SCH ×4 (09:26→20:47)
[2021-08-04] MEDS: lisinopriL 2.5 MG TABLET PO SCH (09:27)
[2021-08-04] MEDS: PANTOPRAZOLE 40 MG VIAL IV SCH ×2 (09:27→20:46)
[2021-08-04] MEDS: ESCITALOPRAM 10 MG TABLET PO SCH (09:27)
[2021-08-04] MEDS: POTASSIUM CHLORIDE 20 MEQ TABLET PO PRN ×5 (09:28→17:01)
[2021-08-04] MEDS: ASPIRIN EC 81 MG TABLET PO SCH (09:28)
[2021-08-04] MEDS: CHOLECALCIFEROL 1,000 UNIT TABLET PO SCH (09:28)
[2021-08-04] MEDS: ACETAMINOPHEN 325 MG TABLET PO PRN (09:28)
[2021-08-04] MEDS: CYANOCOBALAMIN 500 MCG TABLET PO SCH (09:29)
[2021-08-04] MEDS: CARBIDOPA/LEVODOPA 25-100 MG TABLET PO SCH ×3 (09:29→20:45)
[2021-08-04] MEDS: MEMANTINE 10 MG TABLET PO SCH ×2 (09:29→20:46)
[2021-08-04] MEDS: ENOXAPARIN 40 MG/0.4 ML SYRINGE SUBCUT SCH (13:08)
[2021-08-04] MEDS: ATORVASTATIN 80 MG TABLET PO SCH (20:45)
[2021-08-04] MEDS: OXYBUTYNIN XL 5 MG TABLET PO SCH (20:45)
[2021-08-04] MEDS: LATANOPROST 0.005% OPH SOLN 2.5 ML BOTTLE BOTH EYES SCH (20:47)
[2021-08-04] MEDS: cefTRIAXone 1,000 MG in SODIUM CHLORIDE 0.9% 100 ML IV SCH (21:27)
[2021-08-04] MEDS: CLINDAMYCIN INJ 300 MG/50 ML PREMIX IV SCH (22:15)
[2021-08-05] MEDS: AMPICILLIN INJ 1,000 MG in SODIUM CHLORIDE 0.9% 100 ML IV SCH ×3 (00:04→13:24)
[2021-08-05] MEDS: CLINDAMYCIN INJ 300 MG/50 ML PREMIX IV SCH (05:30)
[2021-08-05 07:46] LABS: Basophils % 0.4 % (0.0-0.8); Eosinophils # 0.2 10*3/uL (0.0-0.87); Eosinophils % 1.9 % (0.00-10.9); Hematocrit 35.3 VOL% (42.0-52.0); Hemoglobin 11.6 GM/DL (14.0-18.0); Immature Granulocytes % 0.7 %; Immature Granulocytes Absolute 0.08 #; Lymphocytes # 1.2 10*3/uL (1.4-4.0); Lymphocytes % 10.8 % (21.2-54.2); Mean Corpuscular HGB Conc 32.9 GM/DL (32-36); Mean Corpuscular Volume 85.3 FL (87-102); Mean Platelet Volume 10.3 FL (9.6-12.0); Monocytes % 8.2 % (1.7-12.7); Platelet Count 208 T/CUMM (130-400); Red Blood Count 4.14 MC/CUMM (3.8-5.5); Red Cell Distribution Width 13.6 % (9.3-17.3); White Blood Count 10.8 T/CUMM (4-12)
[2021-08-05 07:57] LABS: Calcium 8.2 MG/DL (8.5-10.1); Osmolality,Calculated 267.5 MOS/KG (273-304); Potassium 4.2 MMOL/L (3.5-5.1)
[2021-08-05] MEDS: ASPIRIN EC 81 MG TABLET PO SCH (09:29)
[2021-08-05] MEDS: lisinopriL 2.5 MG TABLET PO SCH (09:29)
[2021-08-05] MEDS: CYANOCOBALAMIN 500 MCG TABLET PO SCH (09:29)
[2021-08-05] MEDS: CHOLECALCIFEROL 1,000 UNIT TABLET PO SCH (09:29)
[2021-08-05] MEDS: MEMANTINE 10 MG TABLET PO SCH (09:29)
[2021-08-05] MEDS: PANTOPRAZOLE 40 MG VIAL IV SCH (09:30)
[2021-08-05] MEDS: ESCITALOPRAM 10 MG TABLET PO SCH (09:30)
[2021-08-05] MEDS: CARBIDOPA/LEVODOPA 25-100 MG TABLET PO SCH ×2 (09:30→16:35)
[2021-08-05] MEDS: cefTRIAXone 1,000 MG in SODIUM CHLORIDE 0.9% 100 ML IV SCH (09:30)
[2021-08-05] MEDS: INSULIN LISPRO 100 UNIT/ML SUBCUT SCH ×2 (09:31→12:49)
[2021-08-05 11:53] VITALS: BP 155/78
[2021-08-05] MEDS: ENOXAPARIN 40 MG/0.4 ML SYRINGE SUBCUT SCH (13:24)
== END 2021-08-05 15:20 | DRG 64 ==
LOC: EDBD → EDUNIT# → N.EDINP 10:21 → N.ED 10:21 → N.EDINP 07-27 03:25 → N.TELES 07-27 05:02 → SUATTDRO 07-27 13:44
PROVIDERS: ADMIT Internal Medicine; ATTEND Internal Medicine
PROC: EGDWPEG (ICD-10-PCS; 2021-08-01 08:35)

== ENCOUNTER 2021-10-27 20:50 | Inpatient (IN) ==
[2021-10-27] MEDS ORDERED: SODIUM CHLORIDE 0.9% 1,000 ML IV STA (21:21)
[2021-10-27 22:02] LABS: Arterial Base Excess iSTAT 3 MMOL/L (-2.5-2.5); Arterial Bicarbonate iSTAT 27.9 MMOL/L (20-26); Arterial O2 Saturation iSTAT 95 % (95-100); Arterial PCO2 iSTAT 42 MM HG (35-48); Arterial PO2 iSTAT 74 MM HG (80-95); Arterial Total CO2 iSTAT 29 MMO/L (23-27); Arterial pH iSTAT 7.426 (7.35-7.45)
[2021-10-27] MEDS ORDERED: PIPERACILLIN/TAZOBACTAM 3,375 MG in SODIUM CHLORIDE 0.9% 100 ML IV STA (22:11)
[2021-10-27 22:20] LABS: Basophils % 0.5 % (0.0-0.8); Eosinophils % 0.1 % (0.00-10.9); Hematocrit 40.1 VOL% (42.0-52.0); Hemoglobin 13.5 GM/DL (14.0-18.0); Immature Granulocytes % 0.4 %; Immature Granulocytes Absolute 0.03 #; Lymphocytes # 0.9 10*3/uL (1.4-4.0); Lymphocytes % 10.8 % (21.2-54.2); Mean Corpuscular HGB Conc 33.7 GM/DL (32-36); Mean Corpuscular Volume 87.4 FL (87-102); Mean Platelet Volume 11.6 FL (9.6-12.0); Monocytes # 0.7 10*3/uL (0.11-0.8); Monocytes % 8.8 % (1.7-12.7); Neutrophils % 79.4 % (38.7-73.9); Platelet Count 144 T/CUMM (130-400); Red Blood Count 4.59 MC/CUMM (3.8-5.5); Red Cell Distribution Width 16.1 % (9.3-17.3); White Blood Count 8.1 T/CUMM (4-12)
[2021-10-27 22:31] LABS: INR 1.1; PT Patient Result 12.4 SECS (10.5-12.0)
[2021-10-27 22:44] LABS: Alanine Aminotransferase 135 U/L (16-61); Alkaline Phosphatase 91 U/L (45-117); Aspartate Amino Transferase 38 U/L (0-37); Blood Urea Nitrogen 49 MG/DL (7-18); Carbon Dioxide 28 MMOL/L (21-32); Chloride 102 MMOL/L (98-107); Glucose 193 MG/DL (74-106); Osmolality,Calculated 292.7 MOS/KG (273-304); Potassium 4.2 MMOL/L (3.5-5.1); Sodium 138 MMOL/L (136-145); Total Protein 6.3 G/DL (6.4-8.2)
[2021-10-27 22:49] LABS: Band Neutrophils 28 % (0-10); Lymphocytes 19 % (20-55); Metamyelocytes 9 %; Myelocytes 2 %; Total Cells Counted 100
[2021-10-27 22:50] LABS: Platelet Estimate Adequate
[2021-10-27] MEDS ORDERED: SODIUM CHLORIDE 0.9% 1,500 ML IV STA (22:50)
[2021-10-27] MEDS ORDERED: ALBUTEROL/IPRATROPIUM 3 ML NEB RESP TX STA (23:27)
[2021-10-28] MEDS ORDERED: DEXTROSE 10% 250 ML BAG IV PRN (00:07)
[2021-10-28] MEDS ORDERED: GLUCAGON 1 MG VIAL IM PRN (00:07)
[2021-10-28] MEDS ORDERED: NICOTINE 21 MG/24 HR PATCH TRANSDERM PRN (00:12)
[2021-10-28] MEDS ORDERED: ACETAMINOPHEN 325 MG TABLET PO PRN (00:12)
[2021-10-28] MEDS ORDERED: ZALEPLON 5 MG CAPSULE PO PRN (00:12)
[2021-10-28] MEDS ORDERED: ONDANSETRON 4 MG/2 ML VIAL IV PRN (00:12)
[2021-10-28] MEDS ORDERED: diphenhydrAMINE CAP 25 MG CAPSULE PO PRN (00:12)
[2021-10-28] MEDS ORDERED: MORPHINE 2 MG/1 ML SYRINGE IV PRN (00:12)
[2021-10-28] MEDS ORDERED: guaiFENesin/DM ER 600-30 MG TABLET PO PRN (00:12)
[2021-10-28] MEDS ORDERED: hydrALAZINE 20 MG/1 ML VIAL IV PRN (00:12)
[2021-10-28] MEDS ORDERED: LABETALOL 20 MG/4 ML SYRINGE IV STA (00:17)
[2021-10-28] MEDS: ALBUTEROL/IPRATROPIUM 3 ML NEB RESP TX SCH ×5 (00:42→23:30)
[2021-10-28] MEDS: SODIUM CHLORIDE 0.9% 1,000 ML IV SCH ×2 (06:29→17:15)
[2021-10-28] MEDS: INSULIN LISPRO 100 UNIT/ML SUBCUT SCH ×3 (06:30→20:04)
[2021-10-28 06:55] LABS: Basophils % 0.9 % (0.0-0.8); Hematocrit 37.9 VOL% (42.0-52.0); Hemoglobin 12.6 GM/DL (14.0-18.0); Immature Granulocytes % 0.9 %; Immature Granulocytes Absolute 0.02 #; Lymphocytes # 0.5 10*3/uL (1.4-4.0); Lymphocytes % 24.8 % (21.2-54.2); Mean Corpuscular HGB Conc 33.2 GM/DL (32-36); Mean Corpuscular Volume 88.3 FL (87-102); Mean Platelet Volume 10.9 FL (9.6-12.0); Monocytes # 0.2 10*3/uL (0.11-0.8); Monocytes % 7.5 % (1.7-12.7); Neutrophils % 65.9 % (38.7-73.9); Red Blood Count 4.29 MC/CUMM (3.8-5.5); White Blood Count 2.1 T/CUMM (4-12)
[2021-10-28 07:00] LABS: Platelet Count 116 T/CUMM (130-400)
[2021-10-28 07:09] LABS: Calcium 8.7 MG/DL (8.5-10.1); Osmolality,Calculated 296.1 MOS/KG (273-304); Potassium 3.4 MMOL/L (3.5-5.1)
[2021-10-28 07:16] LABS: Band Neutrophils 17 % (0-10); Eosinophils 2 % (0-10); Lymphocytes 30 % (20-55); Myelocytes 1 %; Total Cells Counted 100
[2021-10-28 08:11] LABS: Arterial Base Excess iSTAT -2 MMOL/L (-2.5-2.5); Arterial Bicarbonate iSTAT 21.7 MMOL/L (20-26); Arterial O2 Saturation iSTAT 90 % (95-100); Arterial PCO2 iSTAT 34 MM HG (35-48); Arterial PO2 iSTAT 57 MM HG (80-95); Arterial Total CO2 iSTAT 23 MMO/L (23-27); Arterial pH iSTAT 7.417 (7.35-7.45)
[2021-10-28] MEDS ORDERED: ENOXAPARIN 40 MG/0.4 ML SYRINGE SUBCUT SCH (09:00)
[2021-10-28] MEDS: VANCOMYCIN INJ 1,500 MG in SODIUM CHLORIDE 0.9% 500 ML IV SCH ×2 (09:27→22:45)
[2021-10-28] MEDS ORDERED: SODIUM CHLORIDE 0.9% 500 ML IV ONE (12:58)
[2021-10-28] MEDS: PIPERACILLIN/TAZOBACTAM 3,375 MG in SODIUM CHLORIDE 0.9% 100 ML IV SCH ×2 (15:12→20:17)
[2021-10-28] MEDS: CARBIDOPA/LEVODOPA 25-100 MG TABLET PO SCH ×2 (17:53→22:46)
[2021-10-28] MEDS: APIXABAN 2.5 MG TABLET PO SCH (22:45)
[2021-10-28] MEDS: ATORVASTATIN 80 MG TABLET PO SCH (22:45)
[2021-10-29 01:19] LABS: Calcium 8.5 MG/DL (8.5-10.1); Osmolality,Calculated 288.7 MOS/KG (273-304); Phosphorous 2.7 MG/DL (2.5-4.9); Potassium 3.9 MMOL/L (3.5-5.1)
[2021-10-29] MEDS: PIPERACILLIN/TAZOBACTAM 3,375 MG in SODIUM CHLORIDE 0.9% 100 ML IV SCH ×3 (04:12→21:11)
[2021-10-29] MEDS: SODIUM CHLORIDE 0.9% 1,000 ML IV SCH ×4 (07:25→21:03)
[2021-10-29] MEDS: ALBUTEROL/IPRATROPIUM 3 ML NEB RESP TX SCH ×4 (07:28→23:30)
[2021-10-29] MEDS: INSULIN LISPRO 100 UNIT/ML SUBCUT SCH ×4 (08:07→19:42)
[2021-10-29] MEDS ORDERED: lisinopriL 2.5 MG TABLET PO SCH (09:00)
[2021-10-29] MEDS ORDERED: MAGNESIUM SULF INJ 3 GM in SODIUM CHLORIDE 0.9% 100 ML IV ONE (10:00)
[2021-10-29] MEDS: APIXABAN 2.5 MG TABLET PO SCH ×2 (10:09→20:57)
[2021-10-29] MEDS: VANCOMYCIN INJ 1,500 MG in SODIUM CHLORIDE 0.9% 500 ML IV SCH (10:09)
[2021-10-29] MEDS: CARBIDOPA/LEVODOPA 25-100 MG TABLET PO SCH ×3 (10:09→20:57)
[2021-10-29] MEDS: ATORVASTATIN 80 MG TABLET PO SCH (20:57)
[2021-10-30] MEDS: INSULIN LISPRO 100 UNIT/ML SUBCUT SCH ×4 (01:00→19:24)
[2021-10-30 01:19] LABS: Basophils % 0.2 % (0.0-0.8); Eosinophils % 0.1 % (0.00-10.9); Hematocrit 32.8 VOL% (42.0-52.0); Hemoglobin 10.9 GM/DL (14.0-18.0); Immature Granulocytes % 1.6 %; Immature Granulocytes Absolute 0.19 #; Lymphocytes # 0.8 10*3/uL (1.4-4.0); Mean Corpuscular HGB Conc 33.2 GM/DL (32-36); Mean Corpuscular Volume 88.6 FL (87-102); Mean Platelet Volume 11.1 FL (9.6-12.0); Monocytes # 0.5 10*3/uL (0.11-0.8); Monocytes % 4.4 % (1.7-12.7); Neutrophils % 86.7 % (38.7-73.9); Platelet Count 120 T/CUMM (130-400); Red Cell Distribution Width 16.4 % (9.3-17.3); White Blood Count 11.7 T/CUMM (4-12)
[2021-10-30 01:34] LABS: Albumin 1.9 G/DL (3.4-5.0); Calcium 8.4 MG/DL (8.5-10.1); Osmolality,Calculated 297.1 MOS/KG (273-304); Potassium 3.3 MMOL/L (3.5-5.1); Total Protein 5.2 G/DL (6.4-8.2)
[2021-10-30 02:07] LABS: Band Neutrophils 10 % (0-10); Burr Cells 2+; Lymphocytes 7 % (20-55); Metamyelocytes 4 %; Total Cells Counted 100
[2021-10-30 02:08] LABS: Hypochromia 1+; Microcytosis 1+; Platelet Estimate Normal
[2021-10-30] MEDS: PIPERACILLIN/TAZOBACTAM 3,375 MG in SODIUM CHLORIDE 0.9% 100 ML IV SCH ×3 (06:16→20:14)
[2021-10-30] MEDS: SODIUM CHLORIDE 0.9% 1,000 ML IV SCH (06:42)
[2021-10-30] MEDS: ALBUTEROL/IPRATROPIUM 3 ML NEB RESP TX SCH ×3 (07:20→19:56)
[2021-10-30] MEDS: CARBIDOPA/LEVODOPA 25-100 MG TABLET PO SCH ×3 (10:01→20:15)
[2021-10-30] MEDS: APIXABAN 2.5 MG TABLET PO SCH ×2 (10:01→20:15)
[2021-10-30] MEDS ORDERED: POTASSIUM BICARB EFFERVESCENT 20 MEQ TAB.EFF PER TUBE PRN (11:04)
[2021-10-30 14:10] LABS: Arterial Base Excess iSTAT 3 MMOL/L (-2.5-2.5); Arterial Bicarbonate iSTAT 30.2 MMOL/L (20-26); Arterial O2 Saturation iSTAT 95 % (95-100); Arterial PCO2 iSTAT 60 MM HG (35-48); Arterial PO2 iSTAT 87 MM HG (80-95); Arterial Total CO2 iSTAT 32 MMO/L (23-27); Arterial pH iSTAT 7.309 (7.35-7.45)
[2021-10-30] MEDS ORDERED: FUROSEMIDE 40 MG/4 ML VIAL IV ONE (14:57)
[2021-10-30] MEDS ORDERED: METOPROLOL TARTRATE 5 MG/5 ML VIAL IV ONE (15:00)
[2021-10-30 18:04] LABS: Arterial Base Excess iSTAT 8 MMOL/L (-2.5-2.5); Arterial Bicarbonate iSTAT 31.1 MMOL/L (20-26); Arterial O2 Saturation iSTAT 100 % (95-100); Arterial PCO2 iSTAT 35 MM HG (35-48); Arterial PO2 iSTAT 185 MM HG (80-95); Arterial Total CO2 iSTAT 32 MMO/L (23-27); Arterial pH iSTAT 7.561 (7.35-7.45)
[2021-10-30] MEDS: ATORVASTATIN 80 MG TABLET PO SCH (20:15)
[2021-10-30] MEDS: LATANOPROST 0.005% OPH SOLN 2.5 ML BOTTLE BOTH EYES SCH (20:15)
[2021-10-30] MEDS: MEMANTINE 10 MG TABLET PO SCH (20:22)
[2021-10-30] MEDS: METOPROLOL TARTRATE 25 MG TABLET PO SCH (20:22)
[2021-10-31] MEDS: SODIUM CHLORIDE 0.9% 1,000 ML IV SCH ×2 (00:02→16:09)
[2021-10-31] MEDS: INSULIN LISPRO 100 UNIT/ML SUBCUT SCH ×4 (00:15→18:52)
[2021-10-31] MEDS: ALBUTEROL/IPRATROPIUM 3 ML NEB RESP TX SCH ×4 (00:27→19:17)
[2021-10-31] MEDS: PIPERACILLIN/TAZOBACTAM 3,375 MG in SODIUM CHLORIDE 0.9% 100 ML IV SCH ×3 (04:00→21:47)
[2021-10-31 05:30] LABS: Basophils % 0.2 % (0.0-0.8); Eosinophils % 0.2 % (0.00-10.9); Hematocrit 34.2 VOL% (42.0-52.0); Hemoglobin 11.3 GM/DL (14.0-18.0); Immature Granulocytes Absolute 0.13 #; Lymphocytes # 1.2 10*3/uL (1.4-4.0); Lymphocytes % 9.4 % (21.2-54.2); Mean Corpuscular Volume 89.1 FL (87-102); Mean Platelet Volume 11.3 FL (9.6-12.0); Monocytes # 0.9 10*3/uL (0.11-0.8); Monocytes % 6.6 % (1.7-12.7); Neutrophils % 82.6 % (38.7-73.9); Platelet Count 115 T/CUMM (130-400); Red Blood Count 3.84 MC/CUMM (3.8-5.5); Red Cell Distribution Width 16.7 % (9.3-17.3)
[2021-10-31 05:42] LABS: Phosphorous 1.3 MG/DL (2.5-4.9); Potassium 3.5 MMOL/L (3.5-5.1)
[2021-10-31 05:52] LABS: Lymphocytes 4 % (20-55); Total Cells Counted 100
[2021-10-31] MEDS ORDERED: AMIODARONE INJ 150 MG in DEXTROSE 5% 100 ML IV ONE (07:57)
[2021-10-31] MEDS ORDERED: MAGNESIUM SULF RIDER 2 GM/50 ML PREMIX IV ONE (07:58)
[2021-10-31] MEDS ORDERED: LIDOCAINE 2% 20 ML VIAL RESP TX ONE (08:00)
[2021-10-31] MEDS ORDERED: AMIODARONE INJ 450 MG in DEXTROSE 5% 241 ML IV SCH (08:00)
[2021-10-31] MEDS ORDERED: LIDOCAINE 1% 20 ML VIAL MISC INJ ONE (08:00)
[2021-10-31] MEDS ORDERED: LIDOCAINE 2% VISCOUS 100 ML BOTTLE SWISH/SPIT ONE (08:00)
[2021-10-31] MEDS: CYANOCOBALAMIN 500 MCG TABLET PO SCH (09:44)
[2021-10-31] MEDS: MEMANTINE 10 MG TABLET PO SCH ×3 (09:45→22:34)
[2021-10-31] MEDS: APIXABAN 2.5 MG TABLET PO SCH ×3 (09:45→22:33)
[2021-10-31] MEDS: ASPIRIN EC 81 MG TABLET PO SCH (09:45)
[2021-10-31] MEDS: MULTIVITAMIN (CENTRUM) TABLET PO SCH (09:45)
[2021-10-31] MEDS: METOPROLOL TARTRATE 25 MG TABLET PO SCH ×3 (09:46→22:34)
[2021-10-31] MEDS: CARBIDOPA/LEVODOPA 25-100 MG TABLET PO SCH ×4 (09:46→22:34)
[2021-10-31] MEDS: ESCITALOPRAM 10 MG TABLET PO SCH (09:46)
[2021-10-31] MEDS: PANTOPRAZOLE 40 MG VIAL IV SCH (10:31)
[2021-10-31] MEDS: CHOLECALCIFEROL 1,000 UNIT TABLET PO SCH (15:49)
[2021-10-31] MEDS: AMIODARONE INJ 450 MG in DEXTROSE 5% 241 ML IV SCH ×2 (19:27→23:47)
[2021-10-31] MEDS: ATORVASTATIN 80 MG TABLET PO SCH ×2 (21:47→22:33)
[2021-10-31] MEDS: LATANOPROST 0.005% OPH SOLN 2.5 ML BOTTLE BOTH EYES SCH (21:48)
[2021-10-31] MEDS ORDERED: ENOXAPARIN 40 MG/0.4 ML SYRINGE SUBCUT SCH (23:00)
[2021-10-31] MEDS: METOPROLOL TARTRATE 5 MG/5 ML VIAL IV SCH (23:48)
[2021-11-01] MEDS: ALBUTEROL/IPRATROPIUM 3 ML NEB RESP TX SCH ×4 (00:10→20:10)
[2021-11-01] MEDS: INSULIN LISPRO 100 UNIT/ML SUBCUT SCH ×6 (02:53→22:12)
[2021-11-01] MEDS: PIPERACILLIN/TAZOBACTAM 3,375 MG in SODIUM CHLORIDE 0.9% 100 ML IV SCH ×3 (03:32→21:43)
[2021-11-01 05:02] LABS: Basophils % 0.3 % (0.0-0.8); Eosinophils # 0.1 10*3/uL (0.0-0.87); Eosinophils % 0.6 % (0.00-10.9); Hematocrit 34.9 VOL% (42.0-52.0); Hemoglobin 10.8 GM/DL (14.0-18.0); Immature Granulocytes % 1.3 %; Immature Granulocytes Absolute 0.15 #; Lymphocytes # 1.1 10*3/uL (1.4-4.0); Lymphocytes % 9.9 % (21.2-54.2); Mean Corpuscular HGB Conc 30.9 GM/DL (32-36); Mean Corpuscular Volume 91.1 FL (87-102); Mean Platelet Volume 11.9 FL (9.6-12.0); Monocytes # 1.1 10*3/uL (0.11-0.8); Monocytes % 9.1 % (1.7-12.7); Neutrophils % 78.8 % (38.7-73.9); Platelet Count 116 T/CUMM (130-400); Red Blood Count 3.83 MC/CUMM (3.8-5.5); Red Cell Distribution Width 17.1 % (9.3-17.3); White Blood Count 11.5 T/CUMM (4-12)
[2021-11-01 05:33] LABS: Calcium 8.6 MG/DL (8.5-10.1); Phosphorous 2.2 MG/DL (2.5-4.9); Potassium 3.7 MMOL/L (3.5-5.1)
[2021-11-01] MEDS: METOPROLOL TARTRATE 5 MG/5 ML VIAL IV SCH ×4 (05:56→22:36)
[2021-11-01] MEDS: PANTOPRAZOLE 40 MG VIAL IV SCH (09:18)
[2021-11-01] MEDS: MULTIVITAMIN (CENTRUM) TABLET PO SCH (10:43)
[2021-11-01] MEDS: ASPIRIN EC 81 MG TABLET PO SCH (10:43)
[2021-11-01] MEDS: APIXABAN 2.5 MG TABLET PO SCH ×2 (10:47→21:43)
[2021-11-01] MEDS: ESCITALOPRAM 10 MG TABLET PO SCH (10:47)
[2021-11-01] MEDS: CHOLECALCIFEROL 1,000 UNIT TABLET PO SCH (10:48)
[2021-11-01] MEDS: MEMANTINE 10 MG TABLET PO SCH ×2 (10:48→21:44)
[2021-11-01] MEDS: METOPROLOL TARTRATE 25 MG TABLET PO SCH ×2 (10:48→21:43)
[2021-11-01] MEDS: CARBIDOPA/LEVODOPA 25-100 MG TABLET PO SCH ×3 (10:48→21:44)
[2021-11-01] MEDS: CYANOCOBALAMIN 500 MCG TABLET PO SCH (10:48)
[2021-11-01] MEDS: SODIUM CHLORIDE 0.9% 1,000 ML IV SCH (16:40)
[2021-11-01] MEDS: AMIODARONE INJ 450 MG in DEXTROSE 5% 241 ML IV SCH ×2 (20:23→21:45)
[2021-11-01] MEDS: ATORVASTATIN 80 MG TABLET PO SCH (21:43)
[2021-11-01] MEDS: LATANOPROST 0.005% OPH SOLN 2.5 ML BOTTLE BOTH EYES SCH (21:44)
[2021-11-02] MEDS: ALBUTEROL/IPRATROPIUM 3 ML NEB RESP TX SCH ×2 (00:54→07:16)
[2021-11-02] MEDS: INSULIN LISPRO 100 UNIT/ML SUBCUT SCH ×4 (02:44→15:27)
[2021-11-02] MEDS: PIPERACILLIN/TAZOBACTAM 3,375 MG in SODIUM CHLORIDE 0.9% 100 ML IV SCH ×2 (04:07→12:26)
[2021-11-02] MEDS: AMIODARONE INJ 450 MG in DEXTROSE 5% 241 ML IV SCH (04:43)
[2021-11-02] MEDS: METOPROLOL TARTRATE 5 MG/5 ML VIAL IV SCH ×2 (04:44→10:25)
[2021-11-02 06:08] LABS: Phosphorous 1.8 MG/DL (2.5-4.9)
[2021-11-02] MEDS ORDERED: AMIODARONE 200 MG TABLET PO SCH (09:00)
[2021-11-02] MEDS: MULTIVITAMIN (CENTRUM) TABLET PO SCH (10:21)
[2021-11-02] MEDS: PANTOPRAZOLE 40 MG VIAL IV SCH (10:21)
[2021-11-02] MEDS: CYANOCOBALAMIN 500 MCG TABLET PO SCH (10:21)
[2021-11-02] MEDS: APIXABAN 2.5 MG TABLET PO SCH (10:21)
[2021-11-02] MEDS: CHOLECALCIFEROL 1,000 UNIT TABLET PO SCH (10:22)
[2021-11-02] MEDS: MEMANTINE 10 MG TABLET PO SCH (10:22)
[2021-11-02] MEDS: METOPROLOL TARTRATE 25 MG TABLET PO SCH (10:22)
[2021-11-02] MEDS: ASPIRIN EC 81 MG TABLET PO SCH (10:22)
[2021-11-02] MEDS: SODIUM CHLORIDE 0.9% 1,000 ML IV SCH (10:22)
[2021-11-02] MEDS: ESCITALOPRAM 10 MG TABLET PO SCH (10:24)
[2021-11-02] MEDS: CARBIDOPA/LEVODOPA 25-100 MG TABLET PO SCH ×2 (10:24→15:32)
[2021-11-02 12:41] VITALS: BP 146/90
[2021-11-02] MEDS ORDERED: AMOXICILLIN/CLAV 875 MG TABLET PO SCH (21:00)
== END 2021-11-02 16:05 | disposition hospice, inpatient (51) | DRG 871 ==
LOC: EDBD → EDUNIT# → N.ED 20:50 → SUATTDRO 10-28 00:07 → N.EDINP 10-28 00:07 → N.TELEN 10-28 05:39
PROVIDERS: ADMIT Internal Medicine; ATTEND Internal Medicine